=== PATIENT | female | born 1965 | race American Indian/Alaskan Native ===

== ENCOUNTER 2021-03-02 00:54 | Emergency (ER) | payer SELFPAY ==
[2021-03-02] MEDS ORDERED: NIFEdipine XL 90 MG TAB PO ONE (03:10)
[2021-03-02] MEDS ORDERED: LISINOPRIL 20 MG TAB PO ONE (03:10)
--- NOTE | 2021-03-02 03:53 | Emergency Department Report ---
ED General Adult HPI - General Chief complaint: Medical Clearance Stated complaint: MED REFILL Time Seen by Provider: 03/02/21 03:07 Source: patient Mode of arrival: Ambulatory Limitations: No Limitations - History of Present Illness Initial comments: Patient 55-year-old female with history of hypertension who presents for medication refill patient denies chest pain there is no nausea vomiting no dizziness no lightheadedness no fever chills. No chest pain. Patient is alert oriented x3 amatory with steady gait patient drove self to ED tonight patient with no acute distress at this time - Related Data Previous Rx's Medication Instructions Recorded Last Taken Type Losartan [Cozaar] 50 mg PO QDAY 30 Days #30 tablet 03/02/21 Unknown Rx NIFEdipine [Nifedipine ER] 60 mg PO DAILY #30 tab.er.24 03/02/21 Unknown Rx Allergies Allergy/AdvReac Type Severity Reaction Status Date / Time No Known Allergies Allergy Verified 03/02/21 03:23 ED Review of Systems ROS: Stated complaint: MED REFILL Other details as noted in HPI Constitutional: denies: chills, fever Eyes: denies: eye pain, eye discharge, vision change ENT: denies: ear pain, throat pain Respiratory: denies: cough, shortness of breath, wheezing Cardiovascular: denies: chest pain, palpitations Endocrine: no symptoms reported Gastrointestinal: denies: abdominal pain, nausea, diarrhea Genitourinary: denies: urgency, dysuria, discharge Musculoskeletal: denies: back pain, joint swelling, arthralgia Skin: denies: rash, lesions Neurological: denies: headache, weakness, paresthesias, vertigo Psychiatric: denies: anxiety, depression Hematological/Lymphatic: denies: easy bleeding, easy bruising ED Past Medical Hx - Past Medical History Previous Medical History?: Yes Hx Hypertension: Yes - Surgical History Past Surgical History?: No - Medications Home Medications: Home Medications Medication Instructions Recorded Confirmed Last Taken Type Losartan [Cozaar] 50 mg PO QDAY 30 Days #30 tablet 03/02/21 Unknown Rx NIFEdipine [Nifedipine ER] 60 mg PO DAILY #30 tab.er.24 03/02/21 Unknown Rx ED Physical Exam - General Limitations: No Limitations General appearance: alert, in no apparent distress - Head Head exam: Present: atraumatic, normocephalic - Eye Eye exam: Present: normal appearance, PERRL, EOMI Pupils: Present: normal accommodation - ENT ENT exam: Present: mucous membranes moist - Neck Neck exam: Present: normal inspection, full ROM. Absent: tenderness, lymphadenopathy, thyromegaly - Respiratory Respiratory exam: Present: normal lung sounds bilaterally, wheezes, stridor, chest wall tenderness. Absent: respiratory distress - Cardiovascular Cardiovascular Exam: Present: regular rate, normal rhythm, normal heart sounds. Absent: systolic murmur, diastolic murmur, rubs, gallop - GI/Abdominal GI/Abdominal exam: Present: soft, normal bowel sounds. Absent: distended, tenderness, guarding, rebound, rigid, bruit, hernia - Rectal Rectal exam: Present: deferred - Extremities Exam Extremities exam: Present: normal inspection, full ROM, normal capillary refill. Absent: tenderness - Back Exam Back exam: Present: normal inspection, full ROM. Absent: tenderness, CVA tenderness (R), CVA tenderness (L), muscle spasm - Neurological Exam Neurological exam: Present: alert, oriented X3, CN II-XII intact, normal gait, motor sensory deficit, reflexes normal - Skin Skin exam: Present: warm, dry, intact, normal color. Absent: rash ED Course Vital Signs 03/02/21 00:57 Temperature 98.0 F Pulse Rate 80 Respiratory 18 Rate Blood Pressure 143/101 O2 Sat by Pulse 98 Oximetry ED Medical Decision Making - Medical Decision Making Blood pressure is improved. Diagnosis essential hypertension, refill nifedipine and losartan as previously scheduled. Patient will call In a.m. to set up appointment for next week. Patient verbalized agreement and understanding with discharge plan. Patient DC'd home in stable condition at this time Critical care attestation.: If time is entered above; I have spent that time in minutes in the direct care of this critically ill patient, excluding procedure time. ED Disposition Clinical Impression: Medication refill Disposition: 01 HOME / SELF CARE / HOMELESS Is pt being admited?: No Does the pt Need Aspirin: No Condition: Stable Instructions: Hypertension, Adult Additional Instructions: Take medications as prescribed Prescriptions: Losartan [Cozaar] 50 mg PO QDAY 30 Days #30 tablet NIFEdipine [Nifedipine ER] 60 mg PO DAILY #30 tab.er.24 Referrals: ROXANA MORFIN MD [Staff Physician] - 3-5 Days Forms: Work/School Release Form(ED) Time of Disposition: 04:06
[2021-03-02 05:07] VITALS: BP 143/103
== END 2021-03-02 05:07 | disposition home or self-care (01) ==
LOC: ED 04:41
DX: I10 Essential (primary) hypertension (principal); Z76.0 Encounter for issue of repeat prescription; Z79.899 Other long term (current) drug therapy
CPT/HCPCS: 99282

== ENCOUNTER 2021-03-22 18:09 | Emergency (ER) | payer SELFPAY ==
[2021-03-22 18:24] VITALS: BP 146/101
--- NOTE | 2021-03-22 18:30 | Emergency Department Report ---
ED General Adult HPI - General Chief complaint: Recheck/Abnormal Lab/Rx Stated complaint: REFILL ON MEDS Time Seen by Provider: 03/22/21 18:23 Source: patient Mode of arrival: Ambulatory Limitations: No Limitations - History of Present Illness Initial comments: Patient presents for prescription refill. She has no chest pain or back pain. She has no vomiting or diarrhea. There is no dysuria or hematuria. She does not feel dizzy or lightheaded. She states that she ran out of blood pressure medication and she believes her blood pressure slightly elevated. She does state that she has had hypertension. She is on the correct dose of medication and the medicine she is on controls her tabs in. She has not been eating any salt. She has had no caffeine use. - Related Data Previous Rx's Medication Instructions Recorded Last Taken Type Benazepril HCl 40 mg PO DAILY #30 tab 03/22/21 Unknown Rx NIFEdipine [Nifedipine ER] 90 mg PO DAILY #30 tab 03/22/21 Unknown Rx Allergies Allergy/AdvReac Type Severity Reaction Status Date / Time No Known Allergies Allergy Verified 03/22/21 18:18 ED Review of Systems ROS: Stated complaint: REFILL ON MEDS Other details as noted in HPI Comment: All other systems reviewed and negative Constitutional: denies: fever Eyes: denies: vision change ENT: denies: epistaxis Respiratory: denies: shortness of breath Cardiovascular: denies: chest pain Endocrine: denies: unexplained weight loss Gastrointestinal: denies: hematemesis Genitourinary: denies: hematuria Musculoskeletal: denies: back pain Skin: denies: rash Neurological: denies: headache Hematological/Lymphatic: denies: easy bruising ED Past Medical Hx - Past Medical History Hx Hypertension: Yes - Family History Family history: hypertension - Medications Home Medications: Home Medications Medication Instructions Recorded Confirmed Last Taken Type Benazepril HCl 40 mg PO DAILY #30 tab 03/22/21 Unknown Rx NIFEdipine [Nifedipine ER] 90 mg PO DAILY #30 tab 03/22/21 Unknown Rx ED Physical Exam - General Limitations: No Limitations, Other (Pulse ox noted and normal) General appearance: alert, in no apparent distress, obese - Head Head exam: Present: atraumatic, normocephalic - Eye Eye exam: Present: normal appearance, EOMI. Absent: scleral icterus - ENT ENT exam: Present: normal orophraynx, normal external ear exam - Neck Neck exam: Present: normal inspection. Absent: meningismus - Respiratory Respiratory exam: Present: normal lung sounds bilaterally. Absent: respiratory distress - Cardiovascular Cardiovascular Exam: Present: regular rate, normal rhythm - GI/Abdominal GI/Abdominal exam: Present: other (Obese) - Extremities Exam Extremities exam: Present: normal capillary refill - Back Exam Back exam: Present: full ROM - Neurological Exam Neurological exam: Present: alert, oriented X3, normal gait. Absent: motor sensory deficit - Psychiatric Psychiatric exam: Present: normal affect, normal mood - Skin Skin exam: Present: warm, dry ED Course Vital Signs 03/22/21 18:23 Temperature 98.0 F Pulse Rate 81 Respiratory 18 Rate Blood Pressure 146/101 O2 Sat by Pulse 99 Oximetry - Reevaluation(s) Reevaluation #1: 03/22/21 18:45 Patient was discharged ED Medical Decision Making - Medical Decision Making Patient presented with asymptomatic hypertension. Per ACEP guidelines, there is no indication to lower her blood pressure acutely in an asymptomatic patient. She does not have symptoms of hypertensive encephalopathy or hypertensive emergency. There is no chest pain, strokelike symptoms, or urinary symptoms. She was treated symptomatically and her medications were refilled. Critical Care Time: No Critical care attestation.: If time is entered above; I have spent that time in minutes in the direct care of this critically ill patient, excluding procedure time. ED Disposition Clinical Impression: Uncontrolled hypertension, Medication refill Disposition: HOME / SELF CARE / HOMELESS Is pt being admited?: No Condition: Stable Instructions: Hypertension, Adult, [id number], Hypertension (ED) Additional Instructions: Continue to avoid salt. Drink any water. Return for problems. Take your medication. Follow-up with your regular doctor for recheck and further ma nagement. Prescriptions: Benazepril HCl 40 mg PO DAILY #30 tab NIFEdipine [Nifedipine ER] 90 mg PO DAILY #30 tab Referrals: PRIMARY CARE, [Primary Care Provider] - 3-5 Days
== END 2021-03-22 18:30 | disposition home or self-care (01) ==
LOC: ED 18:09
DX: I10 Essential (primary) hypertension (principal)
CPT/HCPCS: 99281

== ENCOUNTER 2021-04-11 16:07 | Emergency (ER) | payer SELFPAY ==
[2021-04-11 16:26] VITALS: BP 129/84
--- NOTE | 2021-04-11 17:46 | Emergency Department Report ---
ED Female HPI - General Chief complaint: Urogenital-Female Stated complaint: BLOOD IN URINE BLADDER PRESSURE Source: patient Mode of arrival: Ambulatory Limitations: No Limitations - History of Present Illness Initial comments: Chief complaint: Blood in my urine HPI: This is a 55-year-old female with history of hypertension and previous UTI who presents with urgency and hematuria. She was diagnosed with UTI 3 months ago. She cannot recall the name of the antibiotic. Symptoms began today. She has a sensation of bladder pressure. Complaint: other (Hematuria, urinary urgency) -: Gradual, This afternoon (This afternoon) Severity: mild Consistency: constant Worsens with: urination Associated Symptoms: other (Hematuria, urinary urgency, pressure sensation at the bladder) - Related Data Previous Rx's Medication Instructions Recorded Last Taken Type Benazepril HCl 40 mg PO DAILY #30 tab 03/22/21 Unknown Rx NIFEdipine [Nifedipine ER] 90 mg PO DAILY #30 tab 03/22/21 Unknown Rx cephALEXin [Keflex] 500 mg PO TID 7 Days #21 cap 04/11/21 Unknown Rx Allergies Allergy/AdvReac Type Severity Reaction Status Date / Time No Known Allergies Allergy Verified 03/22/21 18:18 ED Review of Systems ROS: Stated complaint: BLOOD IN URINE BLADDER PRESSURE Other details as noted in HPI Gastrointestinal: denies: abdominal pain, nausea, vomiting Genitourinary: urgency, hematuria ED Past Medical Hx - Past Medical History Previous Medical History?: Yes Hx Hypertension: Yes - Social History Smoking Status: Never Smoker - Medications Home Medications: Home Medications Medication Instructions Recorded Confirmed Last Taken Type Benazepril HCl 40 mg PO DAILY #30 tab 03/22/21 Unknown Rx NIFEdipine [Nifedipine ER] 90 mg PO DAILY #30 tab 03/22/21 Unknown Rx cephALEXin [Keflex] 500 mg PO TID 7 Days #21 cap 04/11/21 Unknown Rx ED Physical Exam - General Limitations: No Limitations General appearance: alert, in no apparent distress - Head Head exam: Present: atraumatic, normocephalic - GI/Abdominal GI/Abdominal exam: Present: soft. Absent: distended, tenderness - Back Exam Back exam: Present: normal inspection - Neurological Exam Neurological exam: Present: alert, oriented X3 - Psychiatric Psychiatric exam: Present: normal affect, normal mood - Skin Skin exam: Present: warm, dry, intact, normal color ED Course Vital Signs 04/11/21 16:22 Temperature 98.4 F Pulse Rate 91 H Respiratory 14 Rate Blood Pressure 129/84 [Left] O2 Sat by Pulse 100 Oximetry ED Medical Decision Making - Medical Decision Making Hemorrhagic cystitis: Prescribed cephalexin. Refer to internal medicine physician Critical care attestation.: If time is entered above; I have spent that time in minutes in the direct care of this critically ill patient, excluding procedure time. ED Disposition Clinical Impression: Hemorrhagic cystitis Disposition: HOME / SELF CARE / HOMELESS Is pt being admited?: No Does the pt Need Aspirin: No Condition: Stable Instructions: Urinary Tract Infection, Adult, [id number] Prescriptions: cephALEXin [Keflex] 500 mg PO TID 7 Days #21 cap Referrals: RENATO GARDUNO MD [Staff Physician] - 3-5 Days
== END 2021-04-11 18:06 | disposition home or self-care (01) ==
LOC: ED 16:07
DX: N30.91 Cystitis, unspecified with hematuria (principal); I10 Essential (primary) hypertension
CPT/HCPCS: 99282